=== PATIENT | female | born 1990 | race Hispanic/Latino ===

== ENCOUNTER 2019-04-20 20:07 | Emergency (ER) | payer SELFPAY ==
[2019-04-20] MEDS ORDERED: traMADol HCl 50 MG TAB ONE (20:32)
== END 2019-04-20 20:44 | disposition home or self-care (01) ==
LOC: ERS 20:07
DX: M25.462 Effusion, left knee (principal); F17.210 Nicotine dependence, cigarettes, uncomplicated
CPT/HCPCS: 99283

== ENCOUNTER 2019-07-29 00:11 | Emergency (ER) | payer SELFPAY | END 2019-07-29 01:02 | disposition left against medical advice (07) | LOC: ERS 00:11 | DX: Z53.21 Procedure and treatment not carried out due to patient leaving prior to being seen by health care provider (principal) ==

== ENCOUNTER 2019-12-05 15:35 | Outpatient (CLI) | payer OTHER ==
--- NOTE | 2019-12-05 16:31 | ULT ---
ULTRASOUND OB COMPLETE STANDARD: 12/05/19 HISTORY: Evaluate anatomy. COMPARISON: None. FINDINGS: Real time villar scale, color Doppler with spectral analysis of the gravid uterus was performed via the transabdominal approach. Single viable intrauterine with average ultrasound age 21 week, 3 day. Estimated date of 04/13/20. Estimated weight is 15 oz., 16th percentile. BIOMETRY: Biparietal diameter 4.9 cm 20 week, 6 day Head circumference 18.98 cm 21 week, 2 day Abdominal circumference 16.28 cm 21 week, 3 day Femur length 3.7 cm 21 week, 6 day Heart rate documented at 129 beats per minute. Anatomy: The head, cerebellum, cisterna magna, lateral ventricles, four chamber heart, stomach, kidneys, cord insertion, bladder, spine, lips/nose, upper extremities, lower extremities, three vessel cord are all normal. The placenta is anterior and the presentation is cephalic. No placenta previa. IMPRESSION: 1. Normal single viable intrauterine . 2. Closed cervix measuring 4.1 cm in length. 3. Large venous lakes in the placenta. POS: [facility]
== END 2019-12-05 15:36 | disposition home or self-care (01) ==
LOC: BICULT 15:35
PROVIDERS: ATTEND Family Medicine
DX: Z34.82 Encounter for supervision of other normal pregnancy, second trimester (principal); Z3A.21 21 weeks gestation of pregnancy
CPT/HCPCS: 76805

== ENCOUNTER 2020-03-28 09:16 | Outpatient (CLI) | payer OTHER ==
[2020-03-29 16:05] LABS: SARS-CoV-2 MS2 Positive; SARS-CoV-2 N Gene Negative; SARS-CoV-2 S Gene Negative; SARS-CoV-2 orf1ab Negative
== END 2020-03-28 09:17 | disposition home or self-care (01) ==
LOC: SCSLAB 09:16
PROVIDERS: ATTEND Family Medicine
DX: Z01.812 Encounter for preprocedural laboratory examination (principal); Z11.59 Encounter for screening for other viral diseases
CPT/HCPCS: 87635; U0003

== ENCOUNTER 2020-03-31 18:00 | Inpatient (IN) | payer OTHER ==
[2020-04-01] MEDS ORDERED: Methylergonovine 0.2 MG/ML VIAL IM PRN (05:28)
[2020-04-01] MEDS ORDERED: Carboprost 250 MCG/ML AMP IM PRN (05:28)
[2020-04-01] MEDS ORDERED: Ondansetron PF 4 MG/2 ML Vial IVP PRN ×3 (05:28→10:45)
[2020-04-01] MEDS ORDERED: Promethazine HCl 25 MG/ML VIAL IM PRN ×3 (05:28→10:45)
[2020-04-01] MEDS ORDERED: Diphenoxylate HCl/Atropine Tablet PO PRN (05:28)
[2020-04-01] MEDS ORDERED: CEFAZOLIN 2 GM in Premix Bag 1 BAG IVPB SCH (05:28)
[2020-04-01] MEDS ORDERED: Lidocaine 1% (PF) 30 ML VIAL SC PRN (05:28)
[2020-04-01] MEDS ORDERED: Ibuprofen 800 MG TAB PO PRN (05:28)
[2020-04-01] MEDS ORDERED: NS / Oxytocin 40 units/1000ml 1,000 ML IV PRN (05:28)
[2020-04-01] MEDS ORDERED: Azithromycin 500 MG in Sodium Chloride 0.9% 250 ML 250 ML IVPB SCH (05:28)
[2020-04-01] MEDS ORDERED: hydrALAZINE 20 MG/ML VIAL SLOW IVP PRN ×2 (05:28→10:45)
[2020-04-01] MEDS ORDERED: NS w/ Oxytocin 10 units 500 ML IV SCH ×2 (05:28)
[2020-04-01] MEDS ORDERED: HYDROcodone/Acetaminophen 5/325 mg Tablet PO PRN ×2 (05:28→10:45)
[2020-04-01] MEDS ORDERED: Bicitra 30 ML UDCUP PO SCH (05:28)
[2020-04-01 05:58] VITALS: BMI 34.7
[2020-04-01 06:15] LABS: Hemoglobin 11.8 g/dL (12.0-16.0); Mean Corpuscular HGB CONC 33.4 g/dL (32.0-36.0); Mean Corpuscular Hemoglobin 28.5 pg (27.0-31.0); Mean Corpuscular Volume 85.4 fL (78.0-98.0); Mean Platelet Volume 7.2 fL (7.4-10.4); Platelet Count 407 thou/uL (130-400); RBC Distribution Width 13.4 % (11.5-14.5); Red Blood Cell (RBC) Count 4.15 mill/uL (4.20-5.40); White Blood Cell (WBC) Count 15.6 thou/uL (4.8-10.8)
[2020-04-01] MEDS: Lactated Ringer's 1,000 ML IV SCH (06:44)
[2020-04-01] MEDS: Azithromycin 500 MG VIAL ONE ×2 (06:44→06:45)
[2020-04-01 06:53] LABS: HBSAg Index 0.24 S/CO (0-0.99); Hep B Surf Ag Non-Reactive S/CO (NonReactive); Syphilis Antibody Nonreactive (Nonreactive); Syphilis Antibody Index 0.26 S/CO (<1.00 Non-Reactive)
[2020-04-01] MEDS ORDERED: MORPHINE 5 MG/10 ML PF VIAL ONE (07:42)
[2020-04-01] MEDS ORDERED: Ondansetron PF 4 MG/2 ML Vial ONE ×2 (07:43→09:42)
[2020-04-01] MEDS ORDERED: Oxytocin 10 UNITS/ML VIAL ONE (07:43)
[2020-04-01] MEDS ORDERED: EPHEDRINE 25 MG/5 ML SYRINGE ONE (07:43)
[2020-04-01] MEDS ORDERED: Fentanyl 100 MCG/2 ML VIAL ONE (08:05)
[2020-04-01] MEDS ORDERED: Ondansetron HCl/PF 4 MG/2 ML Vial IVP PRN (08:44)
[2020-04-01] MEDS ORDERED: L&D-Morphine 4 MG/ML VIAL SLOW IVP PRN (08:44)
[2020-04-01] MEDS ORDERED: Naloxone HCl 0.4 mg/ml Vial IVP PRN ×2 (08:44)
[2020-04-01] MEDS ORDERED: Promethazine HCl 25 MG SUPP PR PRN (08:44)
[2020-04-01] MEDS ORDERED: diphenhydrAMINE 50 MG/ML VIAL IVP PRN (08:44)
[2020-04-01] MEDS ORDERED: Ketorolac Tromethamine 30 MG/ML VIAL IVP PRN (08:44)
[2020-04-01] MEDS ORDERED: HYDROmorphone 2 MG/ML VIAL SLOW IVP PRN (08:44)
[2020-04-01] MEDS ORDERED: Meperidine HCl/PF 25 MG/ML VIAL SLOW IVP PRN (08:44)
[2020-04-01] MEDS ORDERED: Naloxone HCl 0.4 mg/ml Vial IV PRN (08:44)
[2020-04-01] MEDS ORDERED: Communication Order-Pharmacy FS SCH (08:45)
[2020-04-01] MEDS ORDERED: Ketorolac Tromethamine 30 MG/ML VIAL IVP SCH (08:45)
[2020-04-01] MEDS ORDERED: Ketorolac Tromethamine 30 MG/ML VIAL ONE (08:58)
[2020-04-01] MEDS ORDERED: Morphine 4 MG/ML VIAL ONE (09:34)
[2020-04-01] MEDS ORDERED: diphenhydrAMINE 50 MG/ML VIAL ONE (10:16)
--- NOTE | 2020-04-01 10:27 | PDOC.OPDEL ---
OB Operative/Delivery Note Delivery Dr/Surgeon: Nitish Assist: GDunn Pre-Delivery Diagnosis: other (h/o shoulder dystocia, gDM) Procedure/Post Delivery Dx: primary low transverse CS Weeks gestation: 39 Anesthesia: spinal - Findings A Sex: male - 1 min: 8 - 5 min: 9 - Additional Findings/Plan Placenta delivered: manual removal findings: low transverse hysterotomy with extension (small right lateral/inferior extension), normal uterus, normal tubes, normal ovaries Estimated blood loss: 680 Compilations/Other Findings: Date of Procedure: 04/01/20 Resident Surgeon: Letty Attending Surgeon: Nitish Procedure: Primary low transverse caesarean section Preoperative Diagnosis: 1)Term intrauterine 2)gDM 3)H/o shoulder dystocia Postoperative Diagnosis: 1)Term intrauterine , delivered 2)Same as above Anesthesia: spinal Indications: The patient is a 29 year old female at 39.0 weeks gestation who presented for primary low transverse for history of gDM with history of prior shoulder dystocia. Procedure in Detail: After risks, benefits, and alternatives were explained to the patient, she gave informed consent. Pre-operative antibiotics included Cefazolin 2 gram IV and Azithromycin 500mg. The patient was taken to the operating room and spinal anesthesia was initiated. She was placed in the supine position with a left tilt and prepped and draped in usual sterile fashion. A Pfannenstiel incision was made with a scalpel and carried down to the level of the fascia which was sharply nicked. The fascial cut was extended bilaterally with Santizo scissors. The inferior and superior edges of the cut fascial edges were elevated with Lenin clamps and the underlying rectus muscles were sharply and bluntly dissected free. The recti were divided digitally and retracted manually. The peritoneum was entered bluntly and retracted manually. Bladder blade was placed. A low transverse score was made with a clean scalpel and the uterus was entered in the midline bluntly. Clear fluid was seen. The hysterotomy was extended manually. The infant was noted to be vertex and was easily delivered with fundal pressure. Mouth and nares were bulb suctioned. Cord clamped and cut and grossly normal male infant was handed to waiting nurse. Cord blood was obtained. Placenta was manually extracted, found to be intact with 3 vessel cord and discarded. The uterus was externalized and the endometrium was curetted with a dry lap. An approximately 2cm right lateral, inferior extension of the hysterotomy was noted. The bladder blade was replaced and the uterus was closed with a running locking #1-Monocryl followed by a running non-locking #1-Monocryl imbricating suture. The small extension was also closed with a figure-of-8 #1 Monocryl suture for hemostasis. Following this hemostasis was noted. The abdomen was irrigated with saline and suctioned free of clots. Suprafilm was then placed over the anterior aspect of the uterus. The uterus was then internalized and again noted to be hemostatic. The peritoneum was then closed with a running, non-locking 3-0 vicryl. The fascia was closed with a running non-locking 0-PDS suture. The subcutaneous tissue was irrigated and noted to be hemostatic. The subcutaneous tissue was then closed with a running, non-locking 3-0 Vicryl suture. The skin was approximated with ran and a pressure dressing was placed. All counts were correct x3. The patient tolerated the procedure well and was taken to the recovery room in stable condition. QBL: 680cc Complications: None Specimens: Cord blood sent to lab for blood type Findings: Grossly normal male with Apgars of 8/9. Grossly normal placenta with 3 vessel cord discarded. Drains: Franklin to gravity draining clear urine Post delivery plan: routine recovery
[2020-04-01] MEDS ORDERED: Meperidine HCl/PF 25 MG/ML VIAL ONE (10:28)
[2020-04-01] MEDS ORDERED: Meperidine HCl/PF 25 MG/ML VIAL IM PRN (10:45)
[2020-04-01] MEDS ORDERED: Adacel (T-DAP) 0.5 ML SYRINGE IM ONE (10:45)
[2020-04-01] MEDS ORDERED: NS / Oxytocin 40 units/1000ml 1,000 ML IV SCH (10:45)
[2020-04-01] MEDS ORDERED: Lanolin Ointment 7 GM TUBE TOP PRN (10:45)
[2020-04-01] MEDS ORDERED: Bisacodyl 10 MG SUPP PR PRN (10:45)
[2020-04-01] MEDS ORDERED: diphenhydrAMINE 25 MG CAP PO PRN (10:45)
[2020-04-01] MEDS: Ketorolac Tromethamine 30 MG/ML VIAL IVP SCH ×2 (15:31→21:30)
[2020-04-01] MEDS: Simethicone Chewable 80 MG TAB PO PRN (19:30)
[2020-04-01] MEDS: Docusate Calcium (SURFAK) 240 MG CAP PO SCH (19:31)
[2020-04-01] MEDS: Ferrous Sulfate 325 MG TAB PO SCH (22:18)
[2020-04-02] MEDS: Simethicone Chewable 80 MG TAB PO PRN ×5 (00:21→20:05)
[2020-04-02] MEDS: HYDROcodone/Acetaminophen 5/325 mg Tablet PO PRN ×6 (00:22→20:04)
[2020-04-02] MEDS: Ketorolac Tromethamine 30 MG/ML VIAL IVP SCH (00:42)
[2020-04-02] MEDS ORDERED: Sodium Chloride 0.9% 10 ML ONE ×3 (01:51→01:53)
[2020-04-02 05:29] LABS: Hemoglobin 8.7 g/dL (12.0-16.0); Mean Corpuscular Hemoglobin 27.6 pg (27.0-31.0); Mean Corpuscular Volume 86.4 fL (78.0-98.0); Mean Platelet Volume 7.6 fL (7.4-10.4); Platelet Count 366 thou/uL (130-400); RBC Distribution Width 13.6 % (11.5-14.5); Red Blood Cell (RBC) Count 3.16 mill/uL (4.20-5.40); White Blood Cell (WBC) Count 12.3 thou/uL (4.8-10.8)
[2020-04-02] MEDS: Ibuprofen 800 MG TAB PO SCH ×3 (06:08→20:04)
[2020-04-02] MEDS: Ferrous Sulfate 325 MG TAB PO SCH ×2 (08:32→20:03)
[2020-04-02] MEDS: Prenatal Vitamin 1 TAB PO SCH (08:32)
[2020-04-02] MEDS: Docusate Calcium (SURFAK) 240 MG CAP PO SCH ×2 (08:32→20:03)
[2020-04-02] MEDS ORDERED: Ibuprofen 800 MG TAB PO SCH (14:00)
[2020-04-03] MEDS: Simethicone Chewable 80 MG TAB PO PRN ×2 (01:12→09:51)
[2020-04-03] MEDS: HYDROcodone/Acetaminophen 5/325 mg Tablet PO PRN ×5 (01:12→18:28)
[2020-04-03] MEDS: Ibuprofen 800 MG TAB PO SCH ×2 (05:20→14:11)
[2020-04-03 08:15] VITALS: BP 135/63; TEMP 97.9
[2020-04-03] MEDS: Ferrous Sulfate 325 MG TAB PO SCH (08:15)
[2020-04-03] MEDS: Prenatal Vitamin 1 TAB PO SCH (08:15)
[2020-04-03] MEDS: Docusate Calcium (SURFAK) 240 MG CAP PO SCH (08:15)
== END 2020-04-03 18:55 | disposition home or self-care (01) | DRG 788 ==
LOC: L&D 04-01 04:59 → 3SW 04-01 13:03
PROVIDERS: ADMIT Family Medicine; ATTEND Family Medicine
PROC: 10D00Z1 Extraction of Products of Conception, Low, Open Approach (ICD-10-PCS; principal; 2020-04-01)
DX: O24.429 Gestational diabetes mellitus in childbirth, unspecified control (principal); Z3A.39 39 weeks gestation of pregnancy; Z37.0 Single live birth
CPT/HCPCS: 36415; 36416; 51702; 85027; 86780; 86850; 86900; 86901; 87340; J0456; J0690; J1200; J1885; J2175; J2270; J2274; J2405; J2590; J3010; J7050; Q0163

== ENCOUNTER 2023-06-30 13:37 | Emergency (ER) | payer OTHER, SELFPAY ==
[2023-06-30] MEDS ORDERED: Acetaminophen 500 MG TAB ONE (14:31)
[2023-06-30] MEDS ORDERED: Ketorolac Tromethamine 30 MG/ML VIAL ONE (15:25)
== END 2023-06-30 16:32 | disposition home or self-care (01) ==
LOC: ERS 13:37
DX: H60.91 Unspecified otitis externa, right ear (principal); F17.210 Nicotine dependence, cigarettes, uncomplicated
CPT/HCPCS: 96372; 99282; J1885